=== PATIENT | male | born 1945 | race Caucasian/White ===

== ENCOUNTER 2017-07-20 13:07 | Outpatient (CLI) | payer MEDICARE, OTHER ==
--- NOTE | 2017-07-20 14:16 | RAD ---
LUMBAR SPINE FOUR VIEWS: History: Low back pain. Left leg radiculopathy. Comparison: 10-13-16 FINDINGS: There are five lumbar type vertebrae. Severe leftward convex rotatory scoliotic curvature is similar in appearance to the prior study. Pedicles are intact. Compression of the L3 vertebral body at the co ncavity is similar in appearance to the prior study. There is multilevel severe disc space narrowing. Gas disc phenomenon and minimal degenerative retrolisthesis are present at the L3-4 level, approxima tely 0.9 cm. There is no significant change upon flexion or extension. Prominent calcification is pre sent throughout the arterial structures. IMPRESSION: 1. Severe lumbar spondylosis. Leftward convex curvature. 2. Atherosclerosis. POS: EL
--- NOTE | 2017-07-20 15:51 | MRI ---
MRI LUMBAR SPINE WITH AND WITHOUT CONTRAST: HISTORY: Low back pain with pain radiating down the left leg x a few months. Back surgery 1 year ago. COMPARISON: None. TECHNIQUE: MRI of the lumbar spine is performed without intravenous Gadolinium administration. Multisequential, multiplanar imaging is performed. FINDINGS: There is appropriate T1 marrow signal intensity of the lumbar vertebrae. Vertebral body height is ma intained. There is no fracture. There is type II Modic change at the L2-L3 and L3-L4 levels. There is symmetric signal intensity of the psoas muscles. There is appropriate signal intensity in the vi sualized solid organs. Conus medullaris terminates at the mid to anterior aspect of T12. Coronal T2 weighted imaging demonstrates leftward curvature of the lumbar spine with apex at the L3 l evel. There are postsurgical changes of a laminectomy defect at L4-L5 and L5-S1. In the posterior midline soft tissues, there is a T2 hyperintense collection with peripheral enhancement. This are measures 4 .7 cm craniocaudal x 1.6 cm mediolateral x 2.6 cm anterior posterior. Differential considerations in clude a postoperative fluid collection versus an abscess. Additional smaller 7 mm signal intensity l esions are noted just to the right of the spinous process at L3. T12-L1: Mild loss of disk space height and minimal disk desiccation. Small left paracentral disk bu lge. Mild central canal stenosis. Mild right and mild to moderate left neural foraminal narrowing. L1-L2: Severe loss of disk space height. Generalized disk bulge, ligamentum flavum thickening, and facet hypertrophy result in moderate central canal stenosis. Moderate right and left foraminal narro wing. L2-L3: Desiccation and severe loss of disk space height. Generalized disk bulge., ligamentum flavum thickening, and facet hypertrophy as well as mild central canal stenosis. Narrowing of both subarti cular zones. Moderate right and left neural foraminal narrowing. L3-L4: Desiccation with severe loss of disk space height. Generalized disk bulge with a right subar ticular component. Disk material abuts and obscures the traversing right L4 nerve root. Disk materi al also abuts but does not obscure the traversing right L5 nerve root. The left subarticular zone is unremarkable. There is minimal posterior ligament hypertrophy. Overall, there is mild central terrence l stenosis. There is enhancing scar tissue along the posterior aspect of the right subarticular zone . Severe right and moderate left foraminal narrowing. L4-L5: Desiccation with moderate loss of disk space height. There is a generalized disk bulge with a central/left paracentral slightly superior disk migration. Posterior decompressive defects are not ed. There is no significant stenosis of the thecal sac. Narrowing of the right and left subarticula r zones. Partial obscuration of the traversing left L5 nerve root. The traversing right L5 nerve ro ot is unremarkable. Right neural foramen is severely narrowed due to disk material and posterior lig ament hypertrophy. There is also severe left foraminal narrowing due to disk material and posterior ligament hypertrophy. There also is some scar tissue likely represent in the left neural foramen. L5-S1: Desiccation with mild loss of disk space height. No high-grade central canal stenosis. Ther e is mild ligamentum flavum thickening and facet hypertrophy. Minimal narrowing of the left subartic ular zone secondary to disk material. Disk material abuts but does not obscure the traversing left S 1 nerve root. Mild right and moderate left foraminal narrowing. Fluid signal intensity in the left and right intraarticular facet joints is noted. IMPRESSION: 1. Postsurgical changes of the lumbar spine as above. Varying degrees of central canal stenosis and foraminal narrowing as above. 2. Peripherally enhancing T2 hyperintense collection in the midline soft tissues which may represent postsurgical change. An infected fluid collection cannot be completely excluded. POS: [facility]
== END 2017-07-20 13:08 | disposition home or self-care (01) ==
LOC: TBSIIMAG 13:07
PROVIDERS: ATTEND Surgery
DX: M47.26 Other spondylosis with radiculopathy, lumbar region (principal); I70.90 Unspecified atherosclerosis
CPT/HCPCS: 72110; 72158

== ENCOUNTER 2018-02-15 11:16 | Outpatient (CLI) | payer MEDICARE, OTHER ==
[2018-02-15 12:59] LABS: Hemoglobin 14.1 g/dL (14.0-18.0); Mean Corpuscular HGB CONC 33.9 g/dL (32.0-36.0); Mean Corpuscular Hemoglobin 30.7 pg (27.0-31.0); Mean Corpuscular Volume 90.7 fL (78.0-98.0); Mean Platelet Volume 7.8 fL (7.4-10.4); Platelet Count 208 thou/uL (130-400); RBC Distribution Width 12.2 % (11.5-14.5); Red Blood Cell (RBC) Count 4.57 mill/uL (4.70-6.10); White Blood Cell (WBC) Count 9.9 thou/uL (4.8-10.8)
[2018-02-15 13:05] LABS: PTT 27.8 SEC (22.9-36.1)
[2018-02-15 13:16] LABS: Anion Gap 15 mmol/L (10-20); BUN (Urea Nitrogen) 23 mg/dL (8.4-25.7); Calc. Creatinine Clearance 0 mL/min (70-130); Calcium 9.7 mg/dL (7.8-10.44); Carbon Dioxide 22 mmol/L (23-31); Chloride 104 mmol/L (98-107); Estimated GFR-MDRD 81; Glucose 110 mg/dL (80-115); Potassium 4.7 mmol/L (3.5-5.1); Sodium 136 mmol/L (136-145)
--- NOTE | 2018-02-17 15:08 | EKG ---
Test Reason : Blood Pressure : / mmHG Vent. Rate : 054 BPM Atrial Rate : 054 BPM P-R Int : 218 ms QRS Dur : 100 ms QT Int : 424 ms P-R-T Axes : 052 065 089 degrees QTc Int : 402 ms Sinus bradycardia with 1st degree A-V block ST elevation consider inferior injury or acute infarct * ACUTE ND * Abnormal ECG When compared with ECG of 02-NOV-2016 13:59, No significant change was found Confirmed by KB HERNANDEZ MD ([id number] on 02/17/2018 3:07:53 PM Referred By: ANUP Confirmed By:KB HERNANDEZ MD
== END 2018-02-15 11:17 | disposition home or self-care (01) ==
LOC: LABBT 11:16
PROVIDERS: ATTEND Surgery
DX: Z01.818 Encounter for other preprocedural examination (principal); M51.16 Intervertebral disc disorders with radiculopathy, lumbar region
CPT/HCPCS: 80048; 85027; 85610; 85730; 93005; 93010

== ENCOUNTER 2018-02-21 09:52 | Day surgery (SDC) | payer MEDICARE, OTHER ==
[2018-02-15 11:48] VITALS: BMI 31.8
[2018-02-21] MEDS ORDERED: Lidocaine 2% Jelly 5 ML TUBE ONE (10:32)
[2018-02-21] MEDS ORDERED: Fentanyl 250 MCG/5 ML VIAL ONE (10:32)
[2018-02-21] MEDS ORDERED: Thrombin 5000 UNITS/5 ML VIAL ONE (10:35)
[2018-02-21] MEDS ORDERED: Sodium Chloride 0.9% 10 ML ONE (10:35)
[2018-02-21] MEDS ORDERED: Lidocaine 1% PF 5 ML VIAL ONE (10:41)
[2018-02-21] MEDS ORDERED: PROPOFOL 200 MG/20 ML VIAL ONE (10:41)
[2018-02-21] MEDS ORDERED: ePHEDrine/0.9% NaCl/PF SYRINGE 50 mg/10 ml ONE (10:41)
[2018-02-21] MEDS ORDERED: Ondansetron HCl/PF 4 MG/2 ML Vial ONE ×2 (10:41→14:49)
[2018-02-21] MEDS ORDERED: PHENYLEPHRINE-NS 100 MCG/ML 10 ML SYRINGE ONE (10:41)
[2018-02-21] MEDS ORDERED: Dexamethasone 20 MG/5 ML VIAL ONE (10:41)
[2018-02-21] MEDS ORDERED: Glycopyrrolate 0.2 MG/ML 5 ML SYRINGE ONE (10:41)
[2018-02-21] MEDS ORDERED: Bacitracin Zinc Ointment 30 gm TUBE ONE (11:38)
[2018-02-21] MEDS ORDERED: CEFAZOLIN/Water 2 GM/20 ML SYRINGE ONE (11:44)
[2018-02-21] MEDS ORDERED: Phenylephrine HCL 10 MG/ML VIAL ONE (11:52)
[2018-02-21] MEDS ORDERED: Ondansetron HCl/PF 4 MG/2 ML Vial IVP PRN (14:39)
[2018-02-21] MEDS ORDERED: Promethazine HCl 25 MG/ML VIAL IM PRN ×2 (14:39→14:45)
[2018-02-21] MEDS ORDERED: Promethazine HCl 25 MG/ML VIAL SLOW IVP PRN (14:39)
[2018-02-21] MEDS ORDERED: Fentanyl 100 MCG/2 ML VIAL ONE ×2 (14:44→15:08)
[2018-02-21] MEDS ORDERED: Bisacodyl 10 MG SUPP PR PRN (14:45)
[2018-02-21] MEDS ORDERED: Milk Of Magnesia 30 ML UDCUP PO PRN (14:45)
[2018-02-21] MEDS ORDERED: traMADol HCl 50 MG TAB PO PRN (14:45)
[2018-02-21] MEDS ORDERED: Acetaminophen/Codeine 30-300mg Tablet PO PRN (14:45)
[2018-02-21] MEDS ORDERED: tiZANidine HCl 4 MG TAB PO PRN (14:45)
[2018-02-21] MEDS ORDERED: Acetaminophen 325 MG TAB PO PRN (14:45)
[2018-02-21] MEDS ORDERED: Mag-Al 1200 mg/1200 mg/30 ML UDCUP PO PRN (14:45)
[2018-02-21] MEDS ORDERED: Fleet Enema 133 ML BOT PR PRN (14:45)
[2018-02-21] MEDS ORDERED: Methocarbamol 500 MG TAB PO PRN (14:48)
[2018-02-21] MEDS: Sodium Chloride 0.9% 1,000 ML IV SCH (17:38)
[2018-02-21] MEDS: CEFAZOLIN/Water 2 GM/20 ML SYRINGE SLOW IVP SCH (20:13)
[2018-02-21] MEDS: Gabapentin 300 MG CAP PO SCH (20:14)
[2018-02-21] MEDS: HYDROcodone/Acetaminophen 7.5/325 mg Tablet PO PRN (20:15)
[2018-02-21] MEDS: Azelastine 137 MCG/Spray 30 ML NS SCH (20:49)
[2018-02-21] MEDS ORDERED: Atorvastatin Calcium 10 MG TAB PO SCH (21:00)
[2018-02-21] MEDS ORDERED: Ezetimibe 10 MG TAB PO SCH (21:00)
[2018-02-22] MEDS: HYDROcodone/Acetaminophen 7.5/325 mg Tablet PO PRN ×2 (03:25→07:44)
[2018-02-22] MEDS: CEFAZOLIN/Water 2 GM/20 ML SYRINGE SLOW IVP SCH (03:27)
[2018-02-22] MEDS: Sodium Chloride 0.9% 1,000 ML IV SCH (03:41)
[2018-02-22] MEDS: Gabapentin 300 MG CAP PO SCH (07:44)
[2018-02-22] MEDS: Azelastine 137 MCG/Spray 30 ML NS SCH (07:46)
[2018-02-22 07:47] VITALS: BP 128/69; TEMP 97.6
[2018-02-22] MEDS ORDERED: Calcium Carbonate 600 MG TAB PO SCH (09:00)
[2018-02-22] MEDS ORDERED: Lisinopril 20 MG TAB PO SCH (09:00)
[2018-02-22] MEDS ORDERED: Multivit, Therapeutic 1 TAB PO SCH (09:00)
--- NOTE | 2018-02-22 13:31 | DIS ---
DATE OF ADMISSION: 02/21/2018 DATE OF DISCHARGE: 02/22/2018 DISCHARGE DIAGNOSES: Include, 1. Lumbar spinal stenosis. 2. Lumbar radiculopathy. HOSPITAL COURSE: Mr. Romano was admitted on 02/21/2018 to undergo revision hemilaminotomy, diskect liz on the left at L4-L5 and L5-S1. Today, he is doing very well in regard to complete resolution of the bilateral lower extremity symptoms. He does have some incisional back pain. He has now met génesis cooley for discharge. He has good strength in the bilateral lower extremities. Appropriate postop ed ucation and outpatient followup appointments were provided for the patient. At the time of discharge , both the patient and his are pleased with his outcome postoperatively. They understand to cristopher l the office with questions or concerns in the meantime.
--- NOTE | 2018-02-22 15:28 | OP ---
DATE OF SURGERY: 02/21/2018 SURGEON: Axel Ramírez M.D. CASHIER CHECKER: Arnav Tyler PA-C. PREPROCEDURE DIAGNOSES: Left L4-L5 radiculopathy with left L4 lateral disk extrusion and compression exiting left L4 root, compression of the traversing left L5 root and compression of the traversing l eft S1 root. Pathology from L4-S1, resulting low back and left leg pain. PROCEDURE: 1. Left L4-L5 revision hemilaminotomy, foraminotomy, and diskectomy for decompression of the guy ing left L5 nerve root. 2. Far lateral transfacet approach for left L4-L5 lateral disk extrusion decompression of the exitin g left L4 root. 3. Left L5-S1 revision hemilaminotomy, foraminotomy for decompression of the left S1 root. 4. Use of operative microscope for microdissection. DESCRIPTION OF PROCEDURE: After informed consent was obtained from the patient, the patient brought to OR 12. Proper patient pause identification was carried out, placed in excellent general endotrach eal anesthesia and positioned prone on the OR table. All appropriate points were padded. We identif ied the prior midline lumbar wound. This region was sterilely cleansed, prepared, and draped. Prope r patient pause and identification was carried out. The wound was then opened with a combination of sharp, monopolar, and blunt dissection to expose the L4-L5, left L5-S1 segments. There was exuberant scar tissue as expected given the patient's prior surgery. Localization film confirmed our area of interest. We then performed left L4-L5 having a revision hemilaminotomy, foraminotomy, and diskectom y. We then worked through transfacet approach to decompress the exiting left L4 root, the left L4 ro ot was skeletonized and revealed and we proceeded through the transfacet approach for far lateral dec ompression of the exiting left L4 root, we were satisfied with the decompression of the exiting left L4 traversing left L5 nerve root and turned our attention to the left L5-S1 segment revision hemilami notomy was performed in this region as well as diskectomy with excellent decompression of the left S1 root. Assessed further decompression of L3 roots. Copious irrigation occurred throughout maximize hemostasis. The wound was then closed in anatomic layers following the sprinkling of vancomycin powd er. The patient was then emerged from anesthesia.
== END 2018-02-22 10:33 | disposition home or self-care (01) ==
LOC: SDC 09:52 → UNDOADMOB 15:47 → SURG B 15:47 → SDC 02-22 10:33 → UNDODISOB 02-22 10:33
PROVIDERS: ATTEND Surgery
PROC: 01NB0ZZ Release Lumbar Nerve, Open Approach (ICD-10-PCS; principal; 2018-02-21)
PROC: 0SB20ZZ Excision of Lumbar Vertebral Disc, Open Approach (ICD-10-PCS; 2018-02-21)
DX: M51.16 Intervertebral disc disorders with radiculopathy, lumbar region (principal); M48.061 Spinal stenosis, lumbar region without neurogenic claudication; Z79.1 Long term (current) use of non-steroidal anti-inflammatories (NSAID); Z79.82 Long term (current) use of aspirin; Z79.899 Other long term (current) drug therapy
CPT/HCPCS: 76001; 96374; A4216; J1100; J2001; J2370; J2405; J2704; J3010; J3370; J3490